=== PATIENT | female | born 1975 | race Caucasian/White ===

== ENCOUNTER 2023-04-29 10:23 | Outpatient (CLI) | payer MEDICAID, SELFPAY ==
--- NOTE | 2023-04-29 09:12 | W.ANESCHARGE ---
Anesthesia Charges Start Date/Time Anesthesia Start Date: 04/29/23 Anesthesia Start Time: 11:45 Stop Date/Time Anesthesia Stop Date: 04/29/23 Anesthesia Stop Time: 12:00
--- NOTE | 2023-04-29 12:02 | W.ANESCHARGE ---
Anesthesia Charges Start Date/Time Anesthesia Start Date: 04/29/23 Anesthesia Start Time: 11:45 Stop Date/Time Anesthesia Stop Date: 04/29/23 Anesthesia Stop Time: 12:00
== END 2023-04-29 10:24 | disposition home or self-care (01) ==
LOC: OP CLINIC 10:26
PROVIDERS: PCP Family Medicine; Visit Provider Internal Medicine Gastroenterology
DX: D50.9 Iron deficiency anemia, unspecified (principal); K44.9 Diaphragmatic hernia without obstruction or gangrene; K21.9 Gastro-esophageal reflux disease without esophagitis
CPT/HCPCS: 43239; 731; 88305; J2704